=== PATIENT | female | born 1955 | race Caucasian/White ===

== ENCOUNTER 2017-10-13 09:07 | Outpatient (CLI) | payer OTHER | END 2017-10-13 09:08 | disposition home or self-care (01) | LOC: BICMAMMO 09:07 | PROVIDERS: ATTEND Family Medicine | DX: Z12.31 Encounter for screening mammogram for malignant neoplasm of breast (principal) | CPT/HCPCS: 77063; 77067 ==

== ENCOUNTER 2020-06-11 10:08 | Inpatient (IN) | payer OTHER ==
[2020-06-11] MEDS ORDERED: Iopamidol-370 76% 500 ML 1 ML ONE (10:35)
[2020-06-11] MEDS ORDERED: Dexamethasone 4 MG TAB ONE (11:09)
[2020-06-11] MEDS ORDERED: cefTRIAXone\\ROCEPHIN 1 GM VIAL ONE (11:09)
[2020-06-11] MEDS ORDERED: Azithromycin 500 MG VIAL ONE (11:09)
[2020-06-11 11:29] LABS: #Basophils 0.1 thou/uL (0.0-0.2); #Lymphocytes 0.5 thou/uL (1.20-3.40); #Monocytes 0.2 thou/uL (0.11-0.59); #Neutrophils 5.7 thou/uL (1.40-6.50); %Basophils 0.8 % (0.0-1.0); %Eosinophils 0.1 % (0.0-10.0); %Neutrophils 88.1 % (42.0-75.0); Mean Corpuscular HGB CONC 33.3 g/dL (32.0-36.0); Mean Corpuscular Hemoglobin 29.7 pg (27.0-31.0); Mean Corpuscular Volume 88.9 fL (78.0-98.0); Mean Platelet Volume 7.1 fL (7.4-10.4); Platelet Count 274 thou/uL (130-400); Red Blood Cell (RBC) Count 4.39 mill/uL (4.20-5.40); White Blood Cell (WBC) Count 6.5 thou/uL (4.8-10.8)
[2020-06-11 11:41] LABS: ALT (SGPT) 75 U/L (8-55); AST (SGOT) 76 U/L (5-34); Albumin 3.8 g/dL (3.4-4.8); Alkaline Phosphatase 132 U/L (40-110); Anion Gap 15 mmol/L (10-20); BUN (Urea Nitrogen) 14 mg/dL (9.8-20.1); Bilirubin, Total 0.6 mg/dL (0.2-1.2); Calc. Creatinine Clearance 0 mL/min (70-130); Calcium 8.4 mg/dL (7.8-10.44); Carbon Dioxide 26 mmol/L (23-31); Chloride 101 mmol/L (98-107); Globulin 3.3 g/dL (2.4-3.5); Glucose 131 mg/dL (80-115); Lipase 29 U/L (8-78); Magnesium 1.8 mg/dL (1.6-2.6); Potassium 3.2 mmol/L (3.5-5.1); Protein, Total 7.1 g/dL (6.0-8.3); Sodium 139 mmol/L (136-145)
[2020-06-11 11:48] LABS: Bacteria/HPF None Seen HPF (None Seen); Bilirubin Negative (Negative); Blood, Urine Negative (Negative); Clarity Clear (Clear); Glucose, Urine (Dipstick) Normal (Negative); Ketone, Urine Negative (Negative); Leukocyte Negative Leu/uL (Negative); Nitrite Negative (Negative); Protein, Urine (Dipstick) 50 mg/dL (Neg-Trace); RBC/HPF 0-3 HPF (0-3); Specific Gravity, Urine 1.029 (1.002-1.036); Squamous Epithelial 0-3 HPF (0-3); Urobilinogen Normal mg/dL (Less than 2); WBC/HPF 0-3 HPF (0-3)
--- NOTE | 2020-06-11 12:15 | RAD ---
PORTABLE CHEST: HISTORY: Cough. COMPARISON: None. FINDINGS: Heart size is within normal limits. Bilateral infiltrative lung changes are seen suspicious for COVI D pneumonia. IMPRESSION: Fairly extensive bilateral infiltrates. Correlation as to the possibility of COVID pneumonia. POS: YOVANNY
[2020-06-11 13:01] LABS: SARS-CoV-2 NAA Rapid Test DETECTED (NotDetected)
[2020-06-11] MEDS ORDERED: Azithromycin 250 MG TAB ONE (13:22)
--- NOTE | 2020-06-11 13:25 | CT ---
CT PULMONARY ANGIOGRAM WITH IV CONTRAST AND 3D POSTPROCESSING: Date: 06/11/2020 HISTORY: 64-year-old female with elevated D-Dimer and positive for COVID-19. FINDINGS: There is good contrast opacification without evidence of filling defects in the pulmonary arterial va sculature to suggest pulmonary embolism. The thoracic aorta is well opacified without aneurysm or dis section. No pleural or pericardial effusions are seen. Multifocal patchy areas of ground-glass opacity and consolidation are seen bilaterally. Upper abdominal tomograms demonstrate a cyst in the superior pole of the right kidney. IMPRESSION: 1. No CT evidence of pulmonary embolism. 2. Findings are consistent with COVID-19 pneumonia. POS: MZA
--- NOTE | 2020-06-11 14:03 | PDOC.HHP ---
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 Patient did not have any loss of taste or smell sensation, she was having on and off fever and increasing shortness of breath. Patient was given ivermectin on Wednesday and Wednesday last week, subsequently patient finished hydroxychloroquine as well as budesonide nebulization and prednisone. Patient restarted taking ivermectin again this week Wednesday, patient symptoms continue to get worse and there so she decided to come to emergency room for evaluation. Today in the emergency room her chest x-ray showing worsening of infiltration as well as bilateral groundglass opacity consistent with Covid pneumonia. Patient was hypoxic on room air required oxygen. Patient is admitted for Covid pneumonia and respiratory failure ED Course: Patient is given azithromycin 500 mg p.o., Rocephin 1 g IV, 500 mL IV fluid, dexamethasone 10 mg p.o. Hospitalist ROS - Review of Systems Constitutional: reports: fever, weakness ENT: denies: ear pain, ear discharge, nose pain, nose discharge, nose congestion, mouth pain, mouth swelling, throat pain, throat swelling, other Respiratory: reports: cough, shortness of breath, SOB with excertion. denies: dry, hemoptysis, pleuritic pain, sputum, wheezing, other Cardiovascular: denies: chest pain, palpitations, orthopnea, paroxysmal noc. dyspnea, edema, light headedness, other Gastrointestinal: denies: nausea, vomiting, abdominal pain, diarrhea, constipation, melena, hematochezia, other Genitourinary: denies: dysuria, frequency, incontinence, hematuria, retention, other Musculoskeletal: denies: neck pain, shoulder pain, arm pain, back pain, hand pain, leg pain, foot pain, other Skin: denies: rash, lesions, cleve, bruising, other - Medication Medications: Allergies Bactrim CODE STATUS patient is full code Current home medication Metoprolol tartrate Levothyroxine Hospitalist History - Past Medical History Other Medical History: Hypothyroidism Hypertension Past psychiatric history reviewed and negative - Past Surgical History Other Surgical History: Hysterectomy - Family History Other Family History: No strong family history of premature coronary artery disease stroke or cancer - Social History Other Social History: Patient is nurse practitioner, she drinks alcohol occasionally, no smoking, no drug abuse - Exam General Appearance: NAD, awake alert Eye: PERRL, anicteric sclera ENT: normocephalic atraumatic, no oropharyngeal lesions Neck: supple, symmetric, no JVD, no thyromegaly, no lymphadenopathy, no carotid bruit Heart: RRR, no murmur, no gallops, no rubs Respiratory: no wheezes, no tachypnea, rales Gastrointestinal: soft, non-tender, non-distended, normal bowel sounds Extremities: no cyanosis, no clubbing, no edema Skin: normal turgor, no lesions Neurological: no focal deficits Musculoskeletal: normal tone, normal strength Psychiatric: normal affect, normal behavior Hospitalist Results - Labs Result Diagrams: 06/11/20 10:42 06/11/20 10:42 Lab results: WBC 6.5 thou/uL (4.8-10.8) 06/11/20 10:42 Hgb 13.0 g/dL (12.0-16.0) 06/11/20 10:42 Hct 39.1 % (36.0-47.0) 06/11/20 10:42 MCV 88.9 fL (78.0-98.0) 06/11/20 10:42 Plt Count 274 thou/uL (130-400) 06/11/20 10:42 Neutrophils % 88.1 % (42.0-75.0) H 06/11/20 10:42 Sodium 139 mmol/L (136-145) 06/11/20 10:42 Potassium 3.2 mmol/L (3.5-5.1) L 06/11/20 10:42 Chloride 101 mmol/L (98-107) 06/11/20 10:42 Carbon Dioxide 26 mmol/L (23-31) 06/11/20 10:42 BUN 14 mg/dL (9.8-20.1) 06/11/20 10:42 Creatinine 0.67 mg/dL (0.6-1.1) 06/11/20 10:42 Glucose 131 mg/dL (80-115) H 06/11/20 10:42 Lactic Acid 2.0 mmol/L (0.5-2.2) 06/11/20 11:42 Calcium 8.4 mg/dL (7.8-10.44) 06/11/20 10:42 Total Bilirubin 0.6 mg/dL (0.2-1.2) 06/11/20 10:42 AST 76 U/L (5-34) H 06/11/20 10:42 ALT 75 U/L (8-55) H 06/11/20 10:42 Alkaline Phosphatase 132 U/L (40-110) H 06/11/20 10:42 Troponin I Less than 0.010 ng/mL (< 0.028) 06/11/20 10:42 B-Natriuretic Peptide 10.4 pg/mL (0-100) 06/11/20 10:42 Serum Total Protein 7.1 g/dL (6.0-8.3) 06/11/20 10:42 Albumin 3.8 g/dL (3.4-4.8) 06/11/20 10:42 Lipase 29 U/L (8-78) 06/11/20 10:42 Urine Ketones Negative mg/dL (Negative) 06/11/20 11:21 Urine Blood Negative (Negative) 06/11/20 11:21 Urine Nitrite Negative (Negative) 06/11/20 11:21 Ur Leukocyte Esterase Negative Juan/uL (Negative) 06/11/20 11:21 Urine RBC 0-3 HPF (0-3) 06/11/20 11:21 Urine WBC 0-3 HPF (0-3) 06/11/20 11:21 Ur Squamous Epith Cells 0-3 HPF (0-3) 06/11/20 11:21 Urine Bacteria None Seen HPF (None Seen) 06/11/20 11:21 - EKG Interpretation EKG: EKG showing sinus tachycardia, incomplete right bundle branch block pattern, - Radiology Interpretation Chest x-ray Status: image reviewed by me Additional Comment: Extensive bilateral infiltrate consistent with Covid pneumonia CT scan - chest Status: image reviewed by me Additional Comment: No CT evidence of pulmonary embolism, multifocal groundglass opacity and consolidation bilaterally consistent with Covid pneumonia Hospitalist H&P A/P - Problem (1) Acute respiratory failure due to COVID-19 Code(s): U07.1 - COVID-19; J96.00 - ACUTE RESPIRATORY FAILURE, UNSP W HYPOXIA OR HYPERCAPNIA Status: Acute (2) Pneumonia due to 2019-nCoV Code(s): U07.1 - COVID-19; J12.89 - OTHER VIRAL PNEUMONIA Status: Acute (3) Transaminitis Code(s): R74.01 - ELEVATION OF LEVELS OF LIVER TRANSAMINASE LEVELS Status: Acute (4) Hypokalemia Code(s): E87.6 - HYPOKALEMIA Status: Acute (5) Hypertension Code(s): I10 - ESSENTIAL (PRIMARY) HYPERTENSION Status: Chronic Qualifiers: Hypertension type: essential hypertension Qualified Code(s): I10 - Essential (primary) hypertension (6) Hypothyroidism Code(s): E03.9 - HYPOTHYROIDISM, UNSPECIFIED Status: Chronic Qualifiers: Hypothyroidism type: unspecified Qualified Code(s): E03.9 - Hypothyroidism, unspecified - Plan Plan: Plan Admission to medical floor Droplet, contact and airborne isolation Dexamethasone 6 mg IV daily Vitamin C 1 g p.o. daily, zinc sulfate 220 mg p.o. daily, Symptomatic treatment for cough Albuterol MDI 2 puffs every 6 hourly as needed Continue empiric Rocephin and azithromycin Her home medication will be reconciled Given 11 days of illness, patient less likely to get benefit with remdesivir, We will consult infectious disease for evaluation Replace potassium chloride 40 mg p.o. one-time dose Tomorrow we will repeat inflammatory markers We will closely monitor for any deterioration We will consider convalescent plasma given prolonged duration DVT prophylaxis Lovenox 40 mg subcu daily GI prophylaxis Pepcid 20 mg p.o. twice daily CODE STATUS patient is full code
[2020-06-11 15:00] LABS: Troponin I Less than 0.010 ng/mL (< 0.028)
[2020-06-11] MEDS ORDERED: Ondansetron PF 4 MG/2 ML Vial IVP PRN ×2 (16:00→20:50)
[2020-06-11] MEDS ORDERED: Acetaminophen 325 MG TAB PO PRN ×2 (16:00→20:50)
[2020-06-11] MEDS ORDERED: Ondansetron ODT 4 MG TAB SL PRN (16:00)
[2020-06-11 18:20] LABS: Troponin I Less than 0.010 ng/mL (< 0.028)
[2020-06-11 19:09] VITALS: BMI 26.2
[2020-06-11] MEDS ORDERED: Albuterol Sulfate 2.5 mg/3 ml Neb NEB PRN ×2 (19:42→20:50)
[2020-06-11] MEDS ORDERED: HYDROcodone/Acetaminophen 5/325 mg Tablet PO PRN (20:50)
[2020-06-11] MEDS ORDERED: hydrALAZINE 20 MG/ML VIAL SLOW IVP PRN (20:50)
[2020-06-11] MEDS ORDERED: Sodium Chloride 0.65% Nasal 44 ML BOT EA NARE PRN (20:50)
[2020-06-11] MEDS ORDERED: Calcium Carbonate 500 MG ChewTAB PO PRN (20:50)
[2020-06-11] MEDS ORDERED: Bisacodyl 10 MG SUPP PR PRN (20:50)
[2020-06-11] MEDS ORDERED: Zolpidem Tartrate 5 MG TAB PO PRN (20:50)
[2020-06-11] MEDS ORDERED: Senokot S 8.6-50 MG TAB PO PRN (20:50)
[2020-06-11] MEDS ORDERED: Ondansetron ODT 4 MG TAB PO PRN (20:50)
[2020-06-11] MEDS ORDERED: Potassium Chloride 20 MEQ TAB PO SCH (20:50)
[2020-06-11] MEDS ORDERED: Cepastat Lozenges 1 LOZ PO PRN (20:50)
[2020-06-11] MEDS ORDERED: Loperamide HCl 2 MG CAP PO PRN (20:50)
[2020-06-11] MEDS ORDERED: Loratadine 10 MG TAB PO PRN (20:50)
[2020-06-11] MEDS ORDERED: Diabetic Tussin 200 MG/10 ML UDCUP PO PRN (20:50)
[2020-06-11] MEDS ORDERED: Albuterol 200 PUFF (6.7GM INHALER) INH PRN (21:04)
[2020-06-11] MEDS: Albuterol 200 PUFF (6.7GM INHALER) INH SCH (21:44)
[2020-06-11] MEDS: Ibuprofen 200 MG TAB PO PRN (21:44)
[2020-06-11] MEDS: guaiFENesin ER 600 MG TAB PO SCH (21:45)
[2020-06-11] MEDS: Famotidine 20 MG TAB PO SCH (21:45)
[2020-06-11] MEDS: Benzonatate 100 MG CAP PO PRN (21:45)
[2020-06-12] MEDS: Albuterol 200 PUFF (6.7GM INHALER) INH SCH ×6 (03:53→23:03)
[2020-06-12] MEDS: Levothyroxine Sodium 75 MCG TAB PO SCH (04:51)
[2020-06-12 06:51] LABS: #Basophils 0.1 thou/uL (0.0-0.2); #Lymphocytes 0.5 thou/uL (1.20-3.40); #Monocytes 0.3 thou/uL (0.11-0.59); #Neutrophils 7.6 thou/uL (1.40-6.50); %Basophils 0.8 % (0.0-1.0); %Eosinophils 0.1 % (0.0-10.0); %Monocytes 3.2 % (0.0-10.0); Hemoglobin 12.8 g/dL (12.0-16.0); Mean Corpuscular HGB CONC 32.8 g/dL (32.0-36.0); Mean Corpuscular Hemoglobin 29.9 pg (27.0-31.0); Mean Platelet Volume 6.9 fL (7.4-10.4); Platelet Count 291 thou/uL (130-400); RBC Distribution Width 11.9 % (11.5-14.5); Red Blood Cell (RBC) Count 4.29 mill/uL (4.20-5.40); White Blood Cell (WBC) Count 8.4 thou/uL (4.8-10.8)
[2020-06-12 07:07] LABS: ALT (SGPT) 89 U/L (8-55); AST (SGOT) 72 U/L (5-34); Albumin 3.7 g/dL (3.4-4.8); Alkaline Phosphatase 144 U/L (40-110); Anion Gap 15 mmol/L (10-20); BUN (Urea Nitrogen) 20 mg/dL (9.8-20.1); Bilirubin, Total 0.4 mg/dL (0.2-1.2); CRP (Inflammatory) 8.23 mg/dL (= or < 0.5); Calc. Creatinine Clearance 109 mL/min (70-130); Calcium 8.7 mg/dL (7.8-10.44); Carbon Dioxide 24 mmol/L (23-31); Chloride 105 mmol/L (98-107); Globulin 3.2 g/dL (2.4-3.5); Glucose 107 mg/dL (80-115); Potassium 4.1 mmol/L (3.5-5.1); Protein, Total 6.9 g/dL (6.0-8.3); Sodium 140 mmol/L (136-145)
[2020-06-12] MEDS: Enoxaparin Sodium 40 MG/0.4 ML SYRINGE SC SCH (08:20)
[2020-06-12] MEDS: Ibuprofen 200 MG TAB PO PRN ×2 (08:20→23:31)
[2020-06-12] MEDS: Zinc Sulfate 220 MG CAP PO SCH (08:21)
[2020-06-12] MEDS: Famotidine 20 MG TAB PO SCH ×2 (08:21→21:32)
[2020-06-12] MEDS: Ascorbic Acid 500 mg Chewable Tablet PO SCH (08:21)
[2020-06-12] MEDS: Multivit, Therapeutic 1 TAB PO SCH (08:21)
[2020-06-12] MEDS: guaiFENesin ER 600 MG TAB PO SCH ×2 (08:21→21:31)
[2020-06-12] MEDS: Benzonatate 100 MG CAP PO PRN ×2 (08:21→23:31)
[2020-06-12] MEDS ORDERED: Dexamethasone 4 mg/ml Vial SLOW IVP SCH (09:00)
[2020-06-12] MEDS ORDERED: REMDESIVIR (EUA) 200 MG in Sodium Chloride 0.9% 250 ML 210 ML IV SCH (11:00)
--- NOTE | 2020-06-12 18:49 | CON ---
DATE OF CONSULTATION: 06/12/2020 REASON FOR CONSULT: COVID pneumonia. HISTORY OF PRESENT ILLNESS: A 64-year-old, first admission to this hospital, has a history of hypothyroidism, hypertension, has been sick now for about 12 days with COVID, had an initial negative test and subsequently positive when she was admitted now. She was given hydroxychloroquine in the outpatient setting and then given prednisone and eventually admitted. She has quite pronounced hypoxemia and requiring nasal cannula at 4 L but not yet high-flow nasal cannula requirements. She has a hard time in walking and speaking full sentences and even a hard time in eating because of the breathing interruption caused by the eating motions. No headaches. No chest pain. No abdominal pain, diarrhea. No genitourinary symptoms. No joint symptoms. MEDICAL HISTORY: Hypothyroidism, hypertension. SOCIAL HISTORY: Never a smoker. 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 ALLERGIES: BACTRIM WITH RASH. MEDICATIONS: Had been on 1. Metoprolol. 2. Levothyroxine. Currently she is on 1. Decadron, remdesivir, enoxaparin, among her other p.r.n. medications. 2. She is also on Dulera. FAMILY HISTORY: Noncontributory PHYSICAL EXAMINATION: VITAL SIGNS: Afebrile. She was at 3-1/2 and I increased to 4 L nasal cannula. Her O2 saturations went up to 95%. With proning position, her saturations dropped in the upper 80s and she does not tolerate being in the recumbent position. She requires sitting up, probably because of the distribution of her infiltrates as noted below. NECK: No jugular vein distention. LUNGS: With scattered inspiratory crackles. They are quite prominent in the mid lung region. No wheezing. HEART: S1, S2, regular rate. ABDOMEN: Soft, not distended or tender. No ascites. No bladder distention. Moves all extremities equally. NEUROLOGIC: Cognitive function appears to be intact. LABORATORY DATA: CBC was normal except for mild increase in neutrophil percentage. D-dimer 0.74, 0.9. Sodium 140, creatinine 0.6, AST 72, ALT 89, alkaline phosphatase 144, LDH 377. CRP 8.23. Ferritin was normal at 286. Urinalysis normal. SARS- CoV PCR positive. Chest CT with prominent bilateral ground-glass infiltrates more prevalent in the upper segments of right and left lungs. ASSESSMENT AND PLAN: Severe COVID pneumonia, on nasal cannula O2. The patient is at 12 day of illness. We will get remdesivir and continue Decadron. Followup markers. Job ID: [id number] [facility]
--- NOTE | 2020-06-12 20:23 | PDOC.HOSPP ---
- Subjective Encounter Date: 06/12/20 Encounter Time: 10:00 Subjective: Patient seen and examined for respiratory failure due to COVID-19. Short of breath on minimal exertion. Denies any chest pain or fever. Feels generally weak and fatigue. Continues to have coughing spells. - Objective Vital Signs & Weight: Vital Signs (12 hours) Temp Pulse Resp BP Pulse Ox 06/12/20 15:59 97.5 F L 88 20 110/64 96 06/12/20 12:00 98.0 F 87 20 122/63 92 L Weight Weight 158 lb I&O: 06/11/20 06/12/20 06/13/20 06:59 06:59 06:59 Intake Total 2089 Balance 2089 Result Diagrams: 06/12/20 06:30 06/12/20 06:29 Additional Labs: Abnormal Lab Results - Last 48 hrs 06/11/20 10:42: Potassium 3.2 L, AST 76 H, ALT 75 H, Alkaline Phosphatase 132 H 06/11/20 10:42: MPV 7.1 L, Neutrophils % 88.1 H, Lymphocytes % 8.0 L, Lymphocytes # 0.5 L 06/11/20 10:42: D-Dimer 0.74 H 06/11/20 11:21: Urine Protein 50 A 06/11/20 11:21: SARS-CoV-2 Rap RNA(RT-PCR) DETECTED A* 06/12/20 06:29: AST 72 H, ALT 89 H, Alkaline Phosphatase 144 H, C-Reactive P rotein 8.23 H 06/12/20 06:29: Lactate Dehydrogenase 377 H 06/12/20 06:30: MPV 6.9 L, Neutrophils % 90.0 H, Lymphocytes % 6.0 L, Neutrophils # 7.6 H, Lymphocytes # 0.5 L 06/12/20 06:30: D-Dimer 0.90 H Microbiology - Entire Visit 06/11/20 11:21 Urine clean catch Urine Culture - Preliminary NO GROWTH AT 24 HOURS 06/11/20 11:05 Venous blood - Left Arm Blood Culture - Preliminary Specimen has been received and culture in progress. No Growth to date. 06/11/20 11:02 Venous blood - Right Arm Blood Culture - Preliminary Specimen has been received and culture in progress. No Growth to date. Radiology Reviewed by me: Yes (CT angiogrambilateral pneumonia) Hospitalist ROS - Review of Systems Constitutional: reports: weakness Gastrointestinal: denies: nausea, vomiting, abdominal pain, diarrhea, constipation, melena, hematochezia, other Genitourinary: denies: dysuria, frequency, incontinence, hematuria, retention, other - Medication Medications: Active Medications Generic Name Dose Route Start Last Admin Trade Name Freq PRN Reason Stop Dose Admin Albuterol Sulfate 2 puff 06/11/20 22:30 06/12/20 18:17 Albuterol 200 Puff (6.7gm Inhaler) INH 2 puff [id number] ADA Administration Ascorbic Acid 1,000 mg 06/12/20 09:00 06/12/20 08:21 Ascorbic Acid 500 Mg Chewable Tablet PO 1,000 mg DAILY ADA Administration Benzonatate 100 mg 06/11/20 19:42 06/11/20 21:45 Benzonatate 100 Mg Cap PO 100 mg TIDPRN PRN Administration Cough Benzonatate 100 mg 06/11/20 20:50 06/12/20 08:21 Benzonatate 100 Mg Cap PO 100 mg Q6H PRN Administration Cough Dexamethasone 6 mg 06/12/20 09:00 06/12/20 08:21 Dexamethasone 4 Mg/Ml Vial SLOW IVP 6 mg DAILY ADA Administration Enoxaparin Sodium 40 mg 06/12/20 09:00 06/12/20 08:20 Enoxaparin Sodium 40 Mg/0.4 Ml Syringe SC 40 mg 0900 ADA Administration Famotidine 20 mg 06/11/20 21:00 06/12/20 08:21 Famotidine 20 Mg Tab PO 20 mg BID ADA Administration Guaifenesin 600 mg 06/11/20 21:00 06/12/20 08:21 Guaifenesin Er 600 Mg Tab PO 600 mg Q12HR ADA Administration Ibuprofen 400 mg 06/11/20 19:41 06/12/20 08:20 Ibuprofen 200 Mg Tab PO 400 mg Q8H PRN Administration Pain Levothyroxine Sodium 75 mcg 06/12/20 06:00 06/12/20 04:51 Levothyroxine Sodium 75 Mcg Tab PO 75 mcg 0600 ADA Administration Metoprolol Succinate 25 mg 06/12/20 09:00 06/12/20 08:21 Metoprolol Succinate Xl 25 Mg Tab PO 25 mg DAILY ADA Administration Multivitamins 1 tab 12/09/20 09:00 06/12/20 08:21 Multivit, Therapeutic 1 Tab PO 1 tab DAILY ADA Administration Zinc Sulfate 220 mg 06/12/20 09:00 06/12/20 08:21 Zinc Sulfate 220 Mg Cap PO 220 mg DAILY ADA Administration - Exam General Appearance: ill appearing Eye: PERRL Neck: supple, no JVD Heart: RRR, no gallops, no rubs, normal peripheral pulses Respiratory: no wheezes, rales, rhonchi, tachypneic Gastrointestinal: soft, normal bowel sounds, no guarding, no rigidity Extremities: no cyanosis, no clubbing, no edema Extremities - other findings: No calf tenderness Neurological: no new deficit Psychiatric: normal affect, A&O x 3 Hosp A/P - Plan DVT proph w/lovenox, DVT proph w/SCDs Sepsis with acute hypoxic respiratory failure due to severe COVID-19 pneumoniaPOAsymptom onset 11 days prior to admission Hypertension Hypothyroidism Abnormal LFTs Hypokalemia Elevated inflammatory markers Plan: Case discussed with infectious disease as well as pulmonary. Infectious disease recommended remdesivir along with steroids. Continue O2 supplementation. Continue bronchodilators. Add mucolytic's. Also discussed with pulmonary Dr. Murphy. Chest x-ray and CT scan of the chest reviewed with Dr. Murphy. Dr. Murphy recommended Dulera, doxycycline 100 mg p.o. twice daily, convalescent plasma as well as to increase dexamethasone to [address] Murphy will be avail able for assistance if needed. Monitor inflammatory markers. A.m. labs. Add Ensure. Continue isolation. Continue Lovenox once a day per patient request. Patient was advised to ambulate as tolerated
[2020-06-12] MEDS ORDERED: Doxycycline 100 MG CAP PO SCH (21:00)
[2020-06-12] MEDS: Doxycycline 100 MG CAP PO SCH (21:31)
[2020-06-12] MEDS: Cholecalciferol 1,000 UNITS (25 MCG) TAB PO SCH (21:31)
[2020-06-12] MEDS: Dexamethasone 4 mg/ml Vial SLOW IVP SCH (21:31)
[2020-06-12] MEDS: Mometasone 200 MCG/Formoterol 5 MCG 120 PUFF INHALER INH SCH (21:31)
[2020-06-13] MEDS: Albuterol 200 PUFF (6.7GM INHALER) INH SCH ×6 (02:59→22:40)
[2020-06-13] MEDS: Levothyroxine Sodium 75 MCG TAB PO SCH (05:22)
[2020-06-13 06:57] LABS: #Lymphocytes 0.6 thou/uL (1.20-3.40); #Monocytes 0.2 thou/uL (0.11-0.59); %Basophils 0.5 % (0.0-1.0); %Eosinophils 0.2 % (0.0-10.0); %Lymphocytes 6.8 % (21.0-51.0); %Monocytes 2.2 % (0.0-10.0); %Neutrophils 90.3 % (42.0-75.0); Hemoglobin 13.4 g/dL (12.0-16.0); Mean Corpuscular HGB CONC 33.2 g/dL (32.0-36.0); Mean Corpuscular Volume 90.5 fL (78.0-98.0); Platelet Count 323 thou/uL (130-400); RBC Distribution Width 11.9 % (11.5-14.5); Red Blood Cell (RBC) Count 4.46 mill/uL (4.20-5.40); White Blood Cell (WBC) Count 8.9 thou/uL (4.8-10.8)
[2020-06-13 07:01] LABS: ALT (SGPT) 79 U/L (8-55); AST (SGOT) 59 U/L (5-34); Albumin 3.7 g/dL (3.4-4.8); Alkaline Phosphatase 152 U/L (40-110); Anion Gap 14 mmol/L (10-20); BUN (Urea Nitrogen) 19 mg/dL (9.8-20.1); Bilirubin, Total 0.5 mg/dL (0.2-1.2); CRP (Inflammatory) 8.47 mg/dL (= or < 0.5); Calc. Creatinine Clearance 110 mL/min (70-130); Calcium 8.8 mg/dL (7.8-10.44); Carbon Dioxide 27 mmol/L (23-31); Chloride 103 mmol/L (98-107); Globulin 3.5 g/dL (2.4-3.5); Glucose 131 mg/dL (80-115); Potassium 4.1 mmol/L (3.5-5.1); Protein, Total 7.2 g/dL (6.0-8.3); Sodium 140 mmol/L (136-145)
[2020-06-13] MEDS: Mometasone 200 MCG/Formoterol 5 MCG 120 PUFF INHALER INH SCH ×2 (09:28→18:07)
[2020-06-13] MEDS: Ascorbic Acid 500 mg Chewable Tablet PO SCH (09:29)
[2020-06-13] MEDS: Dexamethasone 4 mg/ml Vial SLOW IVP SCH ×2 (09:29→21:25)
[2020-06-13] MEDS: Famotidine 20 MG TAB PO SCH ×2 (09:30→21:23)
[2020-06-13] MEDS: Doxycycline 100 MG CAP PO SCH ×2 (09:30→21:23)
[2020-06-13] MEDS: Multivit, Therapeutic 1 TAB PO SCH (09:30)
[2020-06-13] MEDS: Enoxaparin Sodium 40 MG/0.4 ML SYRINGE SC SCH (09:30)
[2020-06-13] MEDS: Zinc Sulfate 220 MG CAP PO SCH (09:30)
[2020-06-13] MEDS: guaiFENesin ER 600 MG TAB PO SCH ×2 (09:30→21:24)
[2020-06-13] MEDS: Ibuprofen 200 MG TAB PO PRN ×2 (09:31→21:23)
[2020-06-13] MEDS: Benzonatate 100 MG CAP PO PRN ×2 (09:31→21:24)
[2020-06-13] MEDS: REMDESIVIR (EUA) 100 MG in Sodium Chloride 0.9% 250 ML 230 ML IV SCH (13:11)
--- NOTE | 2020-06-13 19:27 | PRG ---
DATE OF SERVICE: 06/13/2020 SUBJECTIVE: Ms. Galicia is feeling better. She is able to go to the restroom and not get terribly short of breath. She can talk and eat now better. OBJECTIVE: VITAL SIGNS: Temperature is normal, saturating 96 on 4 L. GENERAL: Looks more comfortable. She is not so apprehensive as she had been. LUNGS: Symmetric air entry. There are still few crackles here and there. HEART: S1 and S2. Regular rate. ABDOMEN: Soft, not distended. EXTREMITIES: Moves all extremities equally. LABORATORY DATA: White cell count 8.9, hemoglobin 13.4. Creatinine 0.59, AST 59, ALT 79, alkaline phosphatase 152, and CRP is 8.47. She is currently on remdesivir and Decadron. ASSESSMENT AND DISCUSSION: Severe COVID pneumonia, on nasal cannula O2, feeling better. Today is the 13th day of illness, so hopefully she is going to get out of this phase and start improving through the weekend. Job ID: [id number]
--- NOTE | 2020-06-13 19:48 | PDOC.HOSPP ---
- Subjective Encounter Date: 06/13/20 Encounter Time: 11:00 Subjective: Patient seen and examined for respiratory failure/COVID-19 pneumonia. Shortness of breath slowly improving. Feels generally weak. Cough with minimal production. - Objective Vital Signs & Weight: Vital Signs (12 hours) Temp Pulse Resp BP Pulse Ox 06/13/20 09:00 98.0 F 86 20 158/71 H 96 06/13/20 08:00 96 Weight Weight 158 lb I&O: 06/12/20 06/13/20 06/14/20 06:59 06:59 06:59 Intake Total 2089 Balance 2089 Result Diagrams: 06/13/20 06:17 06/13/20 06:17 Additional Labs: Abnormal Lab Results - Last 48 hrs 06/12/20 06:29: AST 72 H, ALT 89 H, Alkaline Phosphatase 144 H, C-Reactive Protein 8.23 H 06/12/20 06:29: Lactate Dehydrogenase 377 H 06/12/20 06:30: MPV 6.9 L, Neutrophils % 90.0 H, Lymphocytes % 6.0 L, Reinaldo trophils # 7.6 H, Lymphocytes # 0.5 L 06/12/20 06:30: D-Dimer 0.90 H 06/13/20 06:17: Creatinine 0.59 L, AST 59 H, ALT 79 H, Alkaline Phosphatase 152 H, C-Reactive Protein 8.47 H, Albumin/Globulin Ratio 1.1 L 06/13/20 06:17: MPV 7.0 L, Neutrophils % 90.3 H, Lymphocytes % 6.8 L, Neutrophils # 8.0 H, Lymphocytes # 0.6 L 06/13/20 06:17: D-Dimer 0.90 H Microbiology - Entire Visit 06/11/20 11:05 Venous blood - Left Arm Blood Culture - Preliminary NO GROWTH AT 48 HOURS 06/11/20 11:02 Venous blood - Right Arm Blood Culture - Preliminary NO GROWTH AT 48 HOURS 06/11/20 11:21 Urine clean catch Urine Culture - Final NO GROWTH AT 48 HOURS Radiology Reviewed by me: Yes (Chest x-raybilateral pneumonia) Hospitalist ROS - Review of Systems Constitutional: reports: weakness. denies: fever, chills, sweats, malaise, other Gastrointestinal: denies: nausea, vomiting, abdominal pain, diarrhea, constipation, melena, hematochezia, other - Medication Medications: Active Medications Generic Name Dose Route Start Last Admin Trade Name Freq PRN Reason Stop Dose Admin Albuterol Sulfate 2 puff 06/11/20 22:30 06/13/20 18:07 Albuterol 200 Puff (6.7gm Inhaler) INH 2 puff [id number] ADA Administration Ascorbic Acid 1,000 mg 06/12/20 09:00 06/13/20 09:29 Ascorbic Acid 500 Mg Chewable Tablet PO 1,000 mg DAILY ADA Administration Benzonatate 100 mg 06/11/20 19:42 06/11/20 21:45 Benzonatate 100 Mg Cap PO 100 mg TIDPRN PRN Administration Cough Benzonatate 100 mg 06/11/20 20:50 06/13/20 09:31 Benzonatate 100 Mg Cap PO 100 mg Q6H PRN Administration Cough Cholecalciferol 1,000 units 06/12/20 21:00 06/12/20 21:31 Cholecalciferol 1,000 Units (25 Mcg) Tab PO 1,000 units HS ADA Administration Dexamethasone 6 mg 06/12/20 21:00 06/13/20 09:29 Dexamethasone 4 Mg/Ml Vial SLOW IVP 6 mg BID ADA Administration Doxycycline Hyclate 100 mg 06/12/20 21:00 06/13/20 09:30 Doxycycline 100 Mg Cap PO 100 mg BID ADA Administration Enoxaparin Sodium 40 mg 06/12/20 09:00 06/13/20 09:30 Enoxaparin Sodium 40 Mg/0.4 Ml Syringe SC 40 mg 0900 ADA Administration Famotidine 20 mg 06/11/20 21:00 06/13/20 09:30 Famotidine 20 Mg Tab PO 20 mg BID ADA Administration Guaifenesin 600 mg 06/11/20 21:00 06/13/20 09:30 Guaifenesin Er 600 Mg Tab PO 600 mg Q12HR ADA Administration Remdesivir 100 mg/ Sodium 250 mls @ 250 mls/hr 06/13/20 11:00 06/13/20 13:11 Chloride IV 06/16/20 11:59 250 mls 1100 ADA Administration Ibuprofen 400 mg 06/11/20 19:41 06/13/20 09:31 Ibuprofen 200 Mg Tab PO 400 mg Q8H PRN Administration Pain Levothyroxine Sodium 75 mcg 06/12/20 06:00 06/13/20 05:22 Levothyroxine Sodium 75 Mcg Tab PO 75 mcg 0600 ADA Administration Metoprolol Succinate 25 mg 06/12/20 09:00 06/13/20 09:30 Metoprolol Succinate Xl 25 Mg Tab PO 25 mg DAILY ADA Administration Mometasone Furoate/Formoterol Fumar 2 puff 06/12/20 18:30 06/13/20 18:07 Mometasone 200 Mcg/Formoterol 5 Mcg 120 Puff Inhaler INH 2 puff BID-RT ADA Administration Multivitamins 1 tab 06/12/20 09:00 06/13/20 09:30 Multivit, Therapeutic 1 Tab PO 1 tab DAILY ADA Administration Zinc Sulfate 220 mg 06/12/20 09:00 06/13/20 09:30 Zinc Sulfate 220 Mg Cap PO 220 mg DAILY ADA Administration - Exam General Appearance: ill appearing Neck: supple, no JVD Heart: no gallops, no rubs Respiratory: no wheezes, rales, rhonchi Gastrointestinal: soft, non-distended, no guarding, no rigidity Extremities: no cyanosis, no clubbing Neurological: no new deficit Musculoskeletal: generalized weakness Hosp A/P - Plan DVT proph w/lovenox, DVT proph w/SCDs Sepsis with acute hypoxic respiratory failure due to severe COVID-19 pneumoniaPOAsymptom onset 11 days prior to admission Hypertension Hypothyroidism Abnormal LFTs Hypokalemia Elevated inflammatory markers Plan: Case discussed again with pulmonary Dr. Murphy. Dr. Murphy advised to continue dexamethasone 6 mg twice daily, doxycycline, albuterol and Dulera. We will continue remdesivir per protocol. Wean O2 as tolerated. Monitor inflammatory markers. Continue other medications as above. Check labs in a.m. (Day 13)
[2020-06-13] MEDS ORDERED: Electrolyte Replacement Protocol 1 EACH FS SCH (20:00)
[2020-06-13] MEDS ORDERED: Electrolyte Replacement Protocol FS PRN (20:00)
[2020-06-13] MEDS: Cholecalciferol 1,000 UNITS (25 MCG) TAB PO SCH (21:25)
[2020-06-14] MEDS: Albuterol 200 PUFF (6.7GM INHALER) INH SCH ×6 (02:49→23:09)
[2020-06-14] MEDS: Levothyroxine Sodium 75 MCG TAB PO SCH (05:32)
[2020-06-14] MEDS: Mometasone 200 MCG/Formoterol 5 MCG 120 PUFF INHALER INH SCH ×2 (06:06→18:32)
[2020-06-14 06:26] LABS: #Eosinphils 0.1 thou/uL (0.0-0.7); #Lymphocytes 0.7 thou/uL (1.20-3.40); #Monocytes 0.4 thou/uL (0.11-0.59); #Neutrophils 5.3 thou/uL (1.40-6.50); %Basophils 0.2 % (0.0-1.0); %Eosinophils 0.9 % (0.0-10.0); %Lymphocytes 10.9 % (21.0-51.0); %Monocytes 6.6 % (0.0-10.0); %Neutrophils 81.4 % (42.0-75.0); Hemoglobin 13.2 g/dL (12.0-16.0); Mean Corpuscular HGB CONC 33.2 g/dL (32.0-36.0); Mean Corpuscular Hemoglobin 29.9 pg (27.0-31.0); Mean Platelet Volume 7.1 fL (7.4-10.4); Platelet Count 388 thou/uL (130-400); RBC Distribution Width 11.9 % (11.5-14.5); Red Blood Cell (RBC) Count 4.42 mill/uL (4.20-5.40); White Blood Cell (WBC) Count 6.6 thou/uL (4.8-10.8)
[2020-06-14] MEDS ORDERED: Magnesium 2 GM/50 ML 2 GM in Premix Bag 1 BAG IVPB SCH (06:30)
[2020-06-14 06:49] LABS: ALT (SGPT) 64 U/L (8-55); AST (SGOT) 42 U/L (5-34); Albumin 3.4 g/dL (3.4-4.8); Alkaline Phosphatase 138 U/L (40-110); Anion Gap 15 mmol/L (10-20); BUN (Urea Nitrogen) 21 mg/dL (9.8-20.1); Bilirubin, Total 0.4 mg/dL (0.2-1.2); Calc. Creatinine Clearance 112 mL/min (70-130); Calcium 8.5 mg/dL (7.8-10.44); Carbon Dioxide 24 mmol/L (23-31); Chloride 104 mmol/L (98-107); Globulin 3.4 g/dL (2.4-3.5); Glucose 146 mg/dL (80-115); Magnesium 2.1 mg/dL (1.6-2.6); Protein, Total 6.8 g/dL (6.0-8.3); Sodium 139 mmol/L (136-145)
[2020-06-14] MEDS: Benzonatate 100 MG CAP PO PRN ×2 (07:38→20:50)
[2020-06-14] MEDS: Famotidine 20 MG TAB PO SCH ×2 (07:38→20:50)
[2020-06-14] MEDS: Ascorbic Acid 500 mg Chewable Tablet PO SCH (07:38)
[2020-06-14] MEDS: Zinc Sulfate 220 MG CAP PO SCH (07:38)
[2020-06-14] MEDS: Doxycycline 100 MG CAP PO SCH ×2 (07:38→20:50)
[2020-06-14] MEDS: Ibuprofen 200 MG TAB PO PRN ×3 (07:38→23:10)
[2020-06-14] MEDS: Enoxaparin Sodium 40 MG/0.4 ML SYRINGE SC SCH (07:39)
[2020-06-14] MEDS: Dexamethasone 4 mg/ml Vial SLOW IVP SCH ×2 (07:39→20:47)
[2020-06-14] MEDS: Multivit, Therapeutic 1 TAB PO SCH (07:39)
[2020-06-14] MEDS: guaiFENesin ER 600 MG TAB PO SCH ×2 (07:39→20:50)
[2020-06-14] MEDS: REMDESIVIR (EUA) 100 MG in Sodium Chloride 0.9% 250 ML 230 ML IV SCH (12:15)
[2020-06-14] MEDS: Guaifenesin DM 100-10/5 ML UDCUP PO PRN ×2 (15:26→23:10)
[2020-06-14] MEDS: Cholecalciferol 1,000 UNITS (25 MCG) TAB PO SCH (20:50)
--- NOTE | 2020-06-14 20:51 | PDOC.HOSPP ---
- Subjective Encounter Date: 06/14/20 Encounter Time: 15:00 Subjective: Patient seen and examined for respiratory failure due to COVID-19. Denies any worsening of shortness of breath. Some dry cough. No fever or chills. - Objective Vital Signs & Weight: Vital Signs (12 hours) Temp Pulse Resp BP Pulse Ox 06/14/20 18:15 96 06/14/20 16:40 97.7 F 86 20 130/74 96 06/14/20 11:45 97.7 F 93 20 129/77 96 Weight Weight 158 lb I&O: 06/13/20 06/14/20 06/15/20 06:59 06:59 06:59 Intake Total 2089 500 1570 Balance 2089 500 1570 Result Diagrams: 06/14/20 06:06 06/14/20 06:06 Additional Labs: Abnormal Lab Results - Last 48 hrs 06/13/20 06:17: Creatinine 0.59 L, AST 59 H, ALT 79 H, Alkaline Phosphatase 152 H, C-Reactive Protein 8.47 H, Albumin/Globulin Ratio 1.1 L 06/13/20 06:17: MPV 7.0 L, Neutrophils % 90.3 H, Lymphocytes % 6.8 L, Neutrophils # 8.0 H, Lymphocytes # 0.6 L 06/13/20 06:17: D-Dimer 0.90 H 06/14/20 06:06: BUN 21 H, Creatinine 0.58 L, AST 42 H, ALT 64 H, Alkaline Phosphatase 138 H, Albumin/Globulin Ratio 1.0 L 06/14/20 06:06: MPV 7.1 L, Neutrophils % 81.4 H, Lymphocytes % 10.9 L, Lymphocytes # 0.7 L Microbiology - Entire Visit 06/11/20 11:05 Venous blood - Left Arm Blood Culture - Preliminary NO GROWTH AT 48 HOURS 06/11/20 11:02 Venous blood - Right Arm Blood Culture - Preliminary NO GROWTH AT 48 HOURS 06/11/20 11:21 Urine clean catch Urine Culture - Final NO GROWTH AT 48 HOURS Radiology Reviewed by me: Yes (Chest x-rayCovid pneumonia) Hospitalist ROS - Review of Systems Cardiovascular: denies: chest pain, palpitations, orthopnea, paroxysmal noc. dyspnea, edema, light headedness, other Gastrointestinal: denies: nausea, vomiting, abdominal pain, diarrhea, constipation, melena, hematochezia, other - Medication Medications: Active Medications Generic Name Dose Route Start Last Admin Trade Name Freq PRN Reason Stop Dose Admin Albuterol Sulfate 2 puff 06/11/20 22:30 06/14/20 18:32 Albuterol 200 Puff (6.7gm Inhaler) INH 2 puff [id number] ADA Administration Ascorbic Acid 1,000 mg 06/12/20 09:00 06/14/20 07:38 Ascorbic Acid 500 Mg Chewable Tablet PO 1,000 mg DAILY ADA Administration Benzonatate 100 mg 06/11/20 19:42 06/11/20 21:45 Benzonatate 100 Mg Cap PO 100 mg TIDPRN PRN Administration Cough Benzonatate 100 mg 06/11/20 20:50 06/14/20 07:38 Benzonatate 100 Mg Cap PO 100 mg Q6H PRN Administration Cough Cholecalciferol 1,000 units 06/12/20 21:00 06/13/20 21:25 Cholecalciferol 1,000 Units (25 Mcg) Tab PO 1,000 units HS ADA Administration Dexamethasone 6 mg 06/12/20 21:00 06/14/20 07:39 Dexamethasone 4 Mg/Ml Vial SLOW IVP 6 mg BID ADA Administration Doxycycline Hyclate 100 mg 06/12/20 21:00 06/14/20 07:38 Doxycycline 100 Mg Cap PO 100 mg BID ADA Administration Enoxaparin Sodium 40 mg 06/12/20 09:00 06/14/20 07:39 Enoxaparin Sodium 40 Mg/0.4 Ml Syringe SC 40 mg 09 ADA Administration Famotidine 20 mg 06/11/20 21:00 06/14/20 07:38 Famotidine 20 Mg Tab PO 20 mg BID ADA Administration Guaifenesin 600 mg 06/11/20 21:00 06/14/20 07:39 Guaifenesin Er 600 Mg Tab PO 600 mg Q12HR ADA Administration Guaifenesin/Dextromethorphan 15 ml 06/11/20 19:42 06/14/20 15:26 Guaifenesin Dm 100-10/5 Ml Udcup PO 15 ml Q4H PRN Administration Cough Remdesivir 100 mg/ Sodium 250 mls @ 250 mls/hr 06/13/20 11:00 06/14/20 12:15 Chloride IV 06/16/20 11:59 250 mls 1100 ADA Administration Ibuprofen 400 mg 06/11/20 19:41 06/14/20 15:26 Ibuprofen 200 Mg Tab PO 400 mg Q8H PRN Administration Pain Levothyroxine Sodium 75 mcg 06/12/20 06:00 06/14/20 05:32 Levothyroxine Sodium 75 Mcg Tab PO 75 mcg 0600 ADA Administration Metoprolol Succinate 25 mg 06/12/20 09:00 06/14/20 07:39 Metoprolol Succinate Xl 25 Mg Tab PO 25 mg DAILY ADA Administration Mometasone Furoate/Formoterol Fumar 2 puff 06/12/20 18:30 06/14/20 18:32 Mometasone 200 Mcg/Formoterol 5 Mcg 120 Puff Inhaler INH 2 puff BID-RT ADA Administration Multivitamins 1 tab 06/12/20 09:00 06/14/20 07:39 Multivit, Therapeutic 1 Tab PO 1 tab DAILY ADA Administration Zinc Sulfate 220 mg 06/12/20 09:00 06/14/20 07:38 Zinc Sulfate 220 Mg Cap PO 220 mg DAILY ADA Administration - Exam General Appearance: ill appearing Heart: RRR, no gallops Respiratory: no wheezes, rales, rhonchi Gastrointestinal: soft, normal bowel sounds Extremities: no cyanosis, no clubbing Neurological: no new deficit Hosp A/P - Plan DVT proph w/lovenox, DVT proph w/SCDs Sepsis with acute hypoxic respiratory failure due to severe COVID-19 pneumoniasymptom onset 11 days prior to admission On remdesivir/dexamethasone Hypertension Hypothyroidism Abnormal LFTs Hypokalemia Elevated inflammatory markers Plan: Case discussed with pulmonary Dr. Murphy who recommended to continue current medications. Continue remdesivir and dexamethasone. Continue bronchodilators and inhaled steroids. Continue doxycycline. Recheck labs in a.m. Monitor inflammatory markers.
[2020-06-15] MEDS: Albuterol 200 PUFF (6.7GM INHALER) INH SCH ×6 (01:49→21:31)
[2020-06-15] MEDS: Mometasone 200 MCG/Formoterol 5 MCG 120 PUFF INHALER INH SCH ×2 (05:32→18:32)
[2020-06-15] MEDS: Levothyroxine Sodium 75 MCG TAB PO SCH (05:32)
[2020-06-15 05:47] LABS: #Eosinphils 0.1 thou/uL (0.0-0.7); #Lymphocytes 0.7 thou/uL (1.20-3.40); #Monocytes 0.5 thou/uL (0.11-0.59); #Neutrophils 5.9 thou/uL (1.40-6.50); %Basophils 0.2 % (0.0-1.0); %Eosinophils 0.8 % (0.0-10.0); %Lymphocytes 9.2 % (21.0-51.0); %Monocytes 7.2 % (0.0-10.0); %Neutrophils 82.7 % (42.0-75.0); Hemoglobin 12.7 g/dL (12.0-16.0); Mean Corpuscular HGB CONC 32.8 g/dL (32.0-36.0); Mean Corpuscular Hemoglobin 29.5 pg (27.0-31.0); Mean Corpuscular Volume 89.9 fL (78.0-98.0); Mean Platelet Volume 6.6 fL (7.4-10.4); Platelet Count 435 thou/uL (130-400); RBC Distribution Width 11.7 % (11.5-14.5); Red Blood Cell (RBC) Count 4.31 mill/uL (4.20-5.40); White Blood Cell (WBC) Count 7.2 thou/uL (4.8-10.8)
[2020-06-15 06:15] LABS: ALT (SGPT) 50 U/L (8-55); AST (SGOT) 25 U/L (5-34); Albumin 3.3 g/dL (3.4-4.8); Alkaline Phosphatase 124 U/L (40-110); Anion Gap 15 mmol/L (10-20); BUN (Urea Nitrogen) 22 mg/dL (9.8-20.1); Bilirubin, Total 0.4 mg/dL (0.2-1.2); CRP (Inflammatory) 1.74 mg/dL (= or < 0.5); Calc. Creatinine Clearance 112 mL/min (70-130); Calcium 8.3 mg/dL (7.8-10.44); Carbon Dioxide 23 mmol/L (23-31); Chloride 104 mmol/L (98-107); Globulin 3.2 g/dL (2.4-3.5); Glucose 165 mg/dL (80-115); Potassium 4.1 mmol/L (3.5-5.1); Protein, Total 6.5 g/dL (6.0-8.3); Sodium 138 mmol/L (136-145)
[2020-06-15] MEDS: Dexamethasone 4 mg/ml Vial SLOW IVP SCH ×2 (07:57→21:31)
[2020-06-15] MEDS: Enoxaparin Sodium 40 MG/0.4 ML SYRINGE SC SCH (07:57)
[2020-06-15] MEDS: Famotidine 20 MG TAB PO SCH ×2 (07:58→21:30)
[2020-06-15] MEDS: Benzonatate 100 MG CAP PO PRN ×2 (07:58→21:30)
[2020-06-15] MEDS: Multivit, Therapeutic 1 TAB PO SCH (07:58)
[2020-06-15] MEDS: Zinc Sulfate 220 MG CAP PO SCH (07:58)
[2020-06-15] MEDS: Ascorbic Acid 500 mg Chewable Tablet PO SCH (07:58)
[2020-06-15] MEDS: guaiFENesin ER 600 MG TAB PO SCH ×2 (07:59→21:30)
[2020-06-15] MEDS: Ibuprofen 200 MG TAB PO PRN ×2 (08:00→21:30)
[2020-06-15] MEDS: Doxycycline 100 MG CAP PO SCH ×2 (08:05→21:30)
[2020-06-15] MEDS: REMDESIVIR (EUA) 100 MG in Sodium Chloride 0.9% 250 ML 230 ML IV SCH (11:16)
[2020-06-15] MEDS: Cholecalciferol 1,000 UNITS (25 MCG) TAB PO SCH (21:30)
[2020-06-16] MEDS: Albuterol 200 PUFF (6.7GM INHALER) INH SCH ×6 (03:29→21:50)
[2020-06-16] MEDS: Levothyroxine Sodium 75 MCG TAB PO SCH (05:05)
[2020-06-16 05:47] LABS: #Eosinphils 0.1 thou/uL (0.0-0.7); #Lymphocytes 0.9 thou/uL (1.20-3.40); #Monocytes 0.6 thou/uL (0.11-0.59); #Neutrophils 7.8 thou/uL (1.40-6.50); %Eosinophils 0.5 % (0.0-10.0); %Lymphocytes 9.1 % (21.0-51.0); %Monocytes 6.7 % (0.0-10.0); %Neutrophils 83.6 % (42.0-75.0); Mean Corpuscular HGB CONC 33.1 g/dL (32.0-36.0); Mean Corpuscular Hemoglobin 29.5 pg (27.0-31.0); Mean Corpuscular Volume 89.3 fL (78.0-98.0); Mean Platelet Volume 6.5 fL (7.4-10.4); Platelet Count 453 thou/uL (130-400); RBC Distribution Width 11.8 % (11.5-14.5); Red Blood Cell (RBC) Count 4.41 mill/uL (4.20-5.40); White Blood Cell (WBC) Count 9.3 thou/uL (4.8-10.8)
[2020-06-16 06:10] LABS: ALT (SGPT) 42 U/L (8-55); AST (SGOT) 22 U/L (5-34); Albumin 3.3 g/dL (3.4-4.8); Alkaline Phosphatase 114 U/L (40-110); Anion Gap 16 mmol/L (10-20); BUN (Urea Nitrogen) 21 mg/dL (9.8-20.1); Bilirubin, Total 0.5 mg/dL (0.2-1.2); Calc. Creatinine Clearance 105 mL/min (70-130); Calcium 8.4 mg/dL (7.8-10.44); Carbon Dioxide 23 mmol/L (23-31); Chloride 102 mmol/L (98-107); Globulin 3.1 g/dL (2.4-3.5); Glucose 163 mg/dL (80-115); Protein, Total 6.4 g/dL (6.0-8.3); Sodium 137 mmol/L (136-145)
[2020-06-16] MEDS: Mometasone 200 MCG/Formoterol 5 MCG 120 PUFF INHALER INH SCH ×2 (06:42→18:23)
--- NOTE | 2020-06-16 08:33 | PDOC.HOSPP ---
- Subjective Encounter Date: 06/15/20 Encounter Time: 11:16 Subjective: Patient up in bed no complaints. - Objective Vital Signs & Weight: Vital Signs (12 hours) Temp Pulse Resp BP Pulse Ox 06/16/20 08:07 97.7 F 91 18 118/74 95 06/16/20 05:22 97.3 F L 87 18 133/82 96 06/16/20 03:43 79 18 99 06/15/20 23:32 97.0 F L 76 20 162/91 H 98 Weight Weight 158 lb I&O: 06/15/20 06/16/20 06/17/20 06:59 06:59 06:59 Intake Total 2069 Balance 2069 Result Diagrams: 06/16/20 05:29 06/16/20 05:29 Hospitalist ROS - Review of Systems Respiratory: denies: cough, dry, shortness of breath, hemoptysis, SOB with excertion, pleuritic pain, sputum, wheezing, other Cardiovascular: denies: chest pain, palpitations, orthopnea, paroxysmal noc. dyspnea, edema, light headedness, other Gastrointestinal: denies: nausea, vomiting, abdominal pain, diarrhea, constipation, melena, hematochezia, other - Medication Medications: Active Medications Generic Name Dose Route Start Last Admin Trade Name Freq PRN Reason Stop Dose Admin Albuterol Sulfate 2 puff 06/11/20 22:30 06/16/20 06:42 Albuterol 200 Puff (6.7gm Inhaler) INH 2 puff [id number] ADA Administration Ascorbic Acid 1,000 mg 06/12/20 09:00 06/15/20 07:58 Ascorbic Acid 500 Mg Chewable Tablet PO 1,000 mg DAILY ADA Administration Benzonatate 100 mg 06/11/20 19:42 06/15/20 21:30 Benzonatate 100 Mg Cap PO 100 mg TIDPRN PRN Administration Cough Benzonatate 100 mg 06/11/20 20:50 06/14/20 20:50 Benzonatate 100 Mg Cap PO 100 mg Q6H PRN Administration Cough Cholecalciferol 1,000 units 06/12/20 21:00 06/15/20 21:30 Cholecalciferol 1,000 Units (25 Mcg) Tab PO 1,000 units HS ADA Administration Dexamethasone 6 mg 06/12/20 21:00 06/15/20 21:31 Dexamethasone 4 Mg/Ml Vial SLOW IVP 6 mg BID ADA Administration Doxycycline Hyclate 100 mg 06/12/20 21:00 06/15/20 21:30 Doxycycline 100 Mg Cap PO 100 mg BID ADA Administration Enoxaparin Sodium 40 mg 06/12/20 09:00 06/15/20 07:57 Enoxaparin Sodium 40 Mg/0.4 Ml Syringe SC 40 mg 0900 ADA Administration Famotidine 20 mg 06/11/20 21:00 06/15/20 21:30 Famotidine 20 Mg Tab PO 20 mg BID ADA Administration Guaifenesin 600 mg 06/11/20 21:00 06/15/20 21:30 Guaifenesin Er 600 Mg Tab PO 600 mg Q12HR ADA Administration Guaifenesin/Dextromethorphan 15 ml 06/11/20 19:42 06/14/20 23:10 Guaifenesin Dm 100-10/5 Ml Udcup PO 15 ml Q4H PRN Administration Cough Remdesivir 100 mg/ Sodium 250 mls @ 250 mls/hr 06/13/20 11:00 06/15/20 11:16 Chloride IV 06/16/20 11:59 250 mls 1100 ADA Administration Ibuprofen 400 mg 06/11/20 19:41 06/15/20 21:30 Ibuprofen 200 Mg Tab PO 400 mg Q8H PRN Administration Pain Levothyroxine Sodium 75 mcg 06/12/20 06:00 06/16/20 05:05 Levothyroxine Sodium 75 Mcg Tab PO 75 mcg 0600 ADA Administration Metoprolol Succinate 25 mg 06/12/20 09:00 06/15/20 07:58 Metoprolol Succinate Xl 25 Mg Tab PO 25 mg DAILY ADA Administration Mometasone Furoate/Formoterol Fumar 2 puff 06/12/20 18:30 06/16/20 06:42 Mometasone 200 Mcg/Formoterol 5 Mcg 120 Puff Inhaler INH 2 puff BID-RT ADA Administration Multivitamins 1 tab 06/12/20 09:00 06/15/20 07:58 Multivit, Therapeutic 1 Tab PO 1 tab DAILY ADA Administration Zinc Sulfate 220 mg 06/12/20 09:00 06/15/20 07:58 Zinc Sulfate 220 Mg Cap PO 220 mg DAILY ADA Administration - Exam Neck: negative: supple, symmetric, no JVD, no thyromegaly, no lymphadenopathy, no carotid bruit, JVD Heart: negative: RRR, no murmur, no gallops, no rubs, normal peripheral pulses, irregular, diminshed peripheral pulses, murmur present, II/IV, III/IV Respiratory: rhonchi Gastrointestinal: negative: soft, non-tender, non-distended, normal bowel sounds, no palpable masses, no hepatomegaly, no splenomegaly, no bruit, no guarding, no rigidity, tender to palpation, distended, diminished bowl sounds, voluntary guarding Hosp A/P - Plan DVT proph w/lovenox, DVT proph w/SCDs Sepsis with acute hypoxic respiratory failure due to severe COVID-19 pneumoniasymptom onset 11 days prior to admission On remdesivir/dexamethasone Hypertension Hypothyroidism Abnormal LFTs Hypokalemia Elevated inflammatory markers Plan: Case discussed with pulmonary Dr. Murphy who recommended to continue current medications. Continue remdesivir and dexamethasone. Continue bronchodilators and inhaled steroids. Continue doxycycline. Recheck labs in a.m. Monitor inflammatory markers. 06/15 we will continue current management. Patient still becomes very hypoxic when she coughs and tries to have a conversation. She is currently on 4 L nasal cannula.
[2020-06-16] MEDS: Enoxaparin Sodium 40 MG/0.4 ML SYRINGE SC SCH (08:46)
[2020-06-16] MEDS: Doxycycline 100 MG CAP PO SCH ×2 (08:46→20:52)
[2020-06-16] MEDS: Dexamethasone 4 mg/ml Vial SLOW IVP SCH ×2 (08:46→20:53)
[2020-06-16] MEDS: Famotidine 20 MG TAB PO SCH ×2 (08:46→20:52)
[2020-06-16] MEDS: guaiFENesin ER 600 MG TAB PO SCH ×2 (08:47→20:52)
[2020-06-16] MEDS: Zinc Sulfate 220 MG CAP PO SCH (08:47)
[2020-06-16] MEDS: Multivit, Therapeutic 1 TAB PO SCH (08:47)
[2020-06-16] MEDS: Ascorbic Acid 500 mg Chewable Tablet PO SCH (08:51)
[2020-06-16] MEDS: Ibuprofen 200 MG TAB PO PRN ×2 (09:26→20:52)
[2020-06-16] MEDS: Benzonatate 100 MG CAP PO PRN ×2 (09:27→20:52)
[2020-06-16] MEDS: REMDESIVIR (EUA) 100 MG in Sodium Chloride 0.9% 250 ML 230 ML IV SCH (12:58)
--- NOTE | 2020-06-16 14:38 | PRG ---
DATE OF SERVICE: 06/16/2020 SUBJECTIVE: Sitting by the bedside, looking good, not in distress. Overall, it turned down her O2 supplementation to 2-1/2. She is saturating at 97%, and after a brief exercise, it stays at 97% O2 saturations. Other vital signs are normal. OBJECTIVE: LUNGS: With crackles mostly confined to the right hemithorax in the upper segments mostly. HEART: S1 and S2, regular rate. ABDOMEN: Soft, not distended or tender. No ascites. No bladder distention. LABORATORY DATA: Creatinine 0.62. Sodium 137, alkaline phosphatase 114. White cell count 9.3, hemoglobin 13, platelets 453, 82% neutrophils. ASSESSMENT AND DISCUSSION: Severe COVID pneumonia with improvement now. This is the 16th day of illness, so we are looking at I think another 2 days and she should be able to go home. She may need O2 supplementation at home just in case. Job ID: [id number]
[2020-06-16] MEDS: Cholecalciferol 1,000 UNITS (25 MCG) TAB PO SCH (20:53)
[2020-06-17] MEDS: Albuterol 200 PUFF (6.7GM INHALER) INH SCH ×6 (02:26→22:15)
[2020-06-17] MEDS: Levothyroxine Sodium 75 MCG TAB PO SCH (05:34)
[2020-06-17] MEDS: Mometasone 200 MCG/Formoterol 5 MCG 120 PUFF INHALER INH SCH ×2 (05:34→17:50)
[2020-06-17 06:11] LABS: #Eosinphils 0.1 thou/uL (0.0-0.7); #Lymphocytes 0.9 thou/uL (1.20-3.40); #Monocytes 0.8 thou/uL (0.11-0.59); #Neutrophils 8.1 thou/uL (1.40-6.50); %Basophils 0.2 % (0.0-1.0); %Eosinophils 0.7 % (0.0-10.0); %Lymphocytes 8.7 % (21.0-51.0); %Monocytes 8.4 % (0.0-10.0); Hemoglobin 12.9 g/dL (12.0-16.0); Mean Corpuscular Hemoglobin 29.3 pg (27.0-31.0); Mean Corpuscular Volume 88.8 fL (78.0-98.0); Mean Platelet Volume 6.8 fL (7.4-10.4); Platelet Count 475 thou/uL (130-400); RBC Distribution Width 11.8 % (11.5-14.5); Red Blood Cell (RBC) Count 4.41 mill/uL (4.20-5.40); White Blood Cell (WBC) Count 9.8 thou/uL (4.8-10.8)
[2020-06-17 06:39] LABS: ALT (SGPT) 33 U/L (8-55); AST (SGOT) 15 U/L (5-34); Albumin 3.2 g/dL (3.4-4.8); Alkaline Phosphatase 109 U/L (40-110); Anion Gap 16 mmol/L (10-20); BUN (Urea Nitrogen) 23 mg/dL (9.8-20.1); Bilirubin, Total 0.4 mg/dL (0.2-1.2); CRP (Inflammatory) 0.59 mg/dL (= or < 0.5); Calc. Creatinine Clearance 109 mL/min (70-130); Calcium 8.2 mg/dL (7.8-10.44); Carbon Dioxide 23 mmol/L (23-31); Chloride 104 mmol/L (98-107); Globulin 2.9 g/dL (2.4-3.5); Glucose 191 mg/dL (80-115); Protein, Total 6.1 g/dL (6.0-8.3); Sodium 139 mmol/L (136-145)
[2020-06-17] MEDS: Multivit, Therapeutic 1 TAB PO SCH (07:50)
[2020-06-17] MEDS: Famotidine 20 MG TAB PO SCH ×2 (07:50→21:10)
[2020-06-17] MEDS: Zinc Sulfate 220 MG CAP PO SCH (07:50)
[2020-06-17] MEDS: guaiFENesin ER 600 MG TAB PO SCH ×2 (07:50→21:10)
[2020-06-17] MEDS: Enoxaparin Sodium 40 MG/0.4 ML SYRINGE SC SCH (07:50)
[2020-06-17] MEDS: Ascorbic Acid 500 mg Chewable Tablet PO SCH (07:50)
[2020-06-17] MEDS: Dexamethasone 4 mg/ml Vial SLOW IVP SCH ×2 (07:51→21:11)
[2020-06-17] MEDS: Ibuprofen 200 MG TAB PO PRN ×2 (07:58→21:10)
[2020-06-17] MEDS: Benzonatate 100 MG CAP PO PRN ×2 (07:59→21:10)
[2020-06-17] MEDS: Doxycycline 100 MG CAP PO SCH ×2 (07:59→21:10)
--- NOTE | 2020-06-17 10:08 | PDOC.HOSPP ---
- Subjective Encounter Date: 06/16/20 Encounter Time: 12:30 Subjective: Patient up in bed no complaints. - Objective Vital Signs & Weight: Vital Signs (12 hours) Temp Pulse Resp BP Pulse Ox 06/17/20 08:17 97.9 F 94 18 131/74 92 L 06/17/20 08:00 97.7 F 87 22 H 117/75 92 L 06/17/20 04:45 97.7 F 84 24 H 97/58 L 96 06/17/20 02:00 98 06/16/20 23:35 97.7 F 86 20 128/78 98 Weight Weight 158 lb I&O: 06/16/20 06/17/20 06/18/20 06:59 06:59 06:59 Intake Total 612 2560 Balance 612 2560 Result Diagrams: 06/17/20 05:42 06/17/20 05:42 Hospitalist ROS - Review of Systems Respiratory: denies: cough, dry, shortness of breath, hemoptysis, SOB with excertion, pleuritic pain, sputum, wheezing, other Cardiovascular: denies: chest pain, palpitations, orthopnea, paroxysmal noc. dyspnea, edema, light headedness, other Gastrointestinal: denies: nausea, vomiting, abdominal pain, diarrhea, constipation, melena, hematochezia, other - Medication Medications: Active Medications Generic Name Dose Route Start Last Admin Trade Name Freq PRN Reason Stop Dose Admin Albuterol Sulfate 2 puff 06/11/20 22:30 06/17/20 05:34 Albuterol 200 Puff (6.7gm Inhaler) INH 2 puff [id number] ADA Administration Ascorbic Acid 1,000 mg 06/12/20 09:00 06/17/20 07:50 Ascorbic Acid 500 Mg Chewable Tablet PO 1,000 mg DAILY ADA Administration Benzonatate 100 mg 06/11/20 19:42 06/16/20 09:27 Benzonatate 100 Mg Cap PO 100 mg TIDPRN PRN Administration Cough Benzonatate 100 mg 06/11/20 20:50 06/17/20 07:59 Benzonatate 100 Mg Cap PO 100 mg Q6H PRN Administration Cough Cholecalciferol 1,000 units 06/12/20 21:00 06/16/20 20:53 Cholecalciferol 1,000 Units (25 Mcg) Tab PO 1,000 units HS ADA Administration Dexamethasone 6 mg 06/12/20 21:00 06/17/20 07:51 Dexamethasone 4 Mg/Ml Vial SLOW IVP 6 mg BID ADA Administration Doxycycline Hyclate 100 mg 06/12/20 21:00 06/17/20 07:59 Doxycycline 100 Mg Cap PO 100 mg BID ADA Administration Enoxaparin Sodium 40 mg 06/12/20 09:00 06/17/20 07:50 Enoxaparin Sodium 40 Mg/0.4 Ml Syringe SC 40 mg 0900 ADA Administration Famotidine 20 mg 06/11/20 21:00 06/17/20 07:50 Famotidine 20 Mg Tab PO 20 mg BID ADA Administration Guaifenesin 600 mg 06/11/20 21:00 06/17/20 07:50 Guaifenesin Er 600 Mg Tab PO 600 mg Q12HR ADA Administration Guaifenesin/Dextromethorphan 15 ml 06/11/20 19:42 06/14/20 23:10 Guaifenesin Dm 100-10/5 Ml Udcup PO 15 ml Q4H PRN Administration Cough Ibuprofen 400 mg 06/11/20 19:41 06/17/20 07:58 Ibuprofen 200 Mg Tab PO 400 mg Q8H PRN Administration Pain Levothyroxine Sodium 75 mcg 06/12/20 06:00 06/17/20 05:34 Levothyroxine Sodium 75 Mcg Tab PO 75 mcg 0600 ADA Administration Metoprolol Succinate 25 mg 06/12/20 09:00 06/17/20 07:50 Metoprolol Succinate Xl 25 Mg Tab PO 25 mg DAILY ADA Administration Mometasone Furoate/Formoterol Fumar 2 puff 06/12/20 18:30 06/17/20 05:34 Mometasone 200 Mcg/Formoterol 5 Mcg 120 Puff Inhaler INH 2 puff BID-RT ADA Administration Multivitamins 1 tab 06/12/20 09:00 06/17/20 07:50 Multivit, Therapeutic 1 Tab PO 1 tab DAILY ADA Administration Zinc Sulfate 220 mg 06/12/20 09:00 06/17/20 07:50 Zinc Sulfate 220 Mg Cap PO 220 mg DAILY ADA Administration - Exam Neck: negative: supple, symmetric, no JVD, no thyromegaly, no lymphadenopathy, no carotid bruit, JVD Heart: negative: RRR, no murmur, no gallops, no rubs, normal peripheral pulses, irregular, diminshed peripheral pulses, murmur present, II/IV, III/IV Respiratory: negative: CTAB, no wheezes, no rales, no ronchi, normal chest expansion, no tachypnea, normal percussion, rales, rhonchi, tachypneic, wheezes Gastrointestinal: negative: soft, non-tender, non-distended, normal bowel sounds, no palpable masses, no hepatomegaly, no splenomegaly, no bruit, no guarding, no rigidity, tender to palpation, distended, diminished bowl sounds, voluntary guarding Hosp A/P - Plan DVT proph w/lovenox, DVT proph w/SCDs Sepsis with acute hypoxic respiratory failure due to severe COVID-19 pneumoniasymptom onset 11 days prior to admission On remdesivir/dexamethasone Hypertension Hypothyroidism Abnormal LFTs Hypokalemia Elevated inflammatory markers Plan: Case discussed with pulmonary Dr. Murphy who recommended to continue current medications. Continue remdesivir and dexamethasone. Continue bronchodilators and inhaled steroids. Continue doxycycline. Recheck labs in a.m. Monitor inflammatory markers. 06/15 we will continue current management. Patient still becomes very hypoxic when she coughs and tries to have a conversation. She is currently on 4 L nasal cannula. 06/16 patient currently on 3 L nasal cannula we will continue to monitor. Possible discharge in the next 24 to 48 hours if she comes down to 2 L nasal cannula.
--- NOTE | 2020-06-17 18:06 | PDOC.HOSPP ---
- Subjective Encounter Date: 06/17/20 Encounter Time: 15:30 Subjective: Patient up in bed no complaints. - Objective Vital Signs & Weight: Vital Signs (12 hours) Temp Pulse Resp BP Pulse Ox 06/17/20 15:50 97.8 F 82 18 119/69 100 06/17/20 11:34 97.8 F 81 20 130/76 98 06/17/20 08:17 97.9 F 94 18 131/74 92 L 06/17/20 08:00 97.7 F 87 22 H 117/75 92 L Weight Weight 158 lb I&O: 06/16/20 06/17/20 06/18/20 06:59 06:59 06:59 Intake Total 612 2560 Balance 612 2560 Result Diagrams: 06/17/20 05:42 06/17/20 05:42 Hospitalist ROS - Review of Systems Cardiovascular: denies: chest pain, palpitations, orthopnea, paroxysmal noc. dyspnea, edema, light headedness, other Gastrointestinal: denies: nausea, vomiting, abdominal pain, diarrhea, constipation, melena, hematochezia, other Genitourinary: denies: dysuria, frequency, incontinence, hematuria, retention, other - Medication Medications: Active Medications Generic Name Dose Route Start Last Admin Trade Name Freq PRN Reason Stop Dose Admin Albuterol Sulfate 2 puff 06/11/20 22:30 06/17/20 17:49 Albuterol 200 Puff (6.7gm Inhaler) INH 2 puff [id number] ADA Administration Ascorbic Acid 1,000 mg 06/12/20 09:00 06/17/20 07:50 Ascorbic Acid 500 Mg Chewable Tablet PO 1,000 mg DAILY ADA Administration Benzonatate 100 mg 06/11/20 19:42 06/16/20 09:27 Benzonatate 100 Mg Cap PO 100 mg TIDPRN PRN Administration Cough Benzonatate 100 mg 06/11/20 20:50 06/17/20 07:59 Benzonatate 100 Mg Cap PO 100 mg Q6H PRN Administration Cough Cholecalciferol 1,000 units 06/12/20 21:00 06/16/20 20:53 Cholecalciferol 1,000 Units (25 Mcg) Tab PO 1,000 units HS ADA Administration Dexamethasone 6 mg 06/12/20 21:00 06/17/20 07:51 Dexamethasone 4 Mg/Ml Vial SLOW IVP 6 mg BID ADA Administration Doxycycline Hyclate 100 mg 06/12/20 21:00 06/17/20 07:59 Doxycycline 100 Mg Cap PO 100 mg BID ADA Administration Enoxaparin Sodium 40 mg 06/12/20 09:00 06/17/20 07:50 Enoxaparin Sodium 40 Mg/0.4 Ml Syringe SC 40 mg 0900 ADA Administration Famotidine 20 mg 06/11/20 21:00 06/17/20 07:50 Famotidine 20 Mg Tab PO 20 mg BID ADA Administration Guaifenesin 600 mg 06/11/20 21:00 06/17/20 07:50 Guaifenesin Er 600 Mg Tab PO 600 mg Q12HR AAD Administration Guaifenesin/Dextromethorphan 15 ml 06/11/20 19:42 06/14/20 23:10 Guaifenesin Dm 100-10/5 Ml Udcup PO 15 ml Q4H PRN Administration Cough Ibuprofen 400 mg 06/11/20 19:41 06/17/20 07:58 Ibuprofen 200 Mg Tab PO 400 mg Q8H PRN Administration Pain Levothyroxine Sodium 75 mcg 06/12/20 06:00 06/17/20 05:34 Levothyroxine Sodium 75 Mcg Tab PO 75 mcg 0600 ADA Administration Metoprolol Succinate 25 mg 06/12/20 09:00 06/17/20 07:50 Metoprolol Succinate Xl 25 Mg Tab PO 25 mg DAILY ADA Administration Mometasone Furoate/Formoterol Fumar 2 puff 06/12/20 18:30 06/17/20 17:50 Mometasone 200 Mcg/Formoterol 5 Mcg 120 Puff Inhaler INH 2 puff BID-RT ADA Administration Multivitamins 1 tab 06/12/20 09:00 06/17/20 07:50 Multivit, Therapeutic 1 Tab PO 1 tab DAILY ADA Administration Zinc Sulfate 220 mg 06/12/20 09:00 06/17/20 07:50 Zinc Sulfate 220 Mg Cap PO 220 mg DAILY ADA Administration - Exam Neck: negative: supple, symmetric, no JVD, no thyromegaly, no lymphadenopathy, no carotid bruit, JVD Heart: negative: RRR, no murmur, no gallops, no rubs, normal peripheral pulses, irregular, diminshed peripheral pulses, murmur present, II/IV, III/IV Respiratory: negative: CTAB, no wheezes, no rales, no ronchi, normal chest expansion, no tachypnea, normal percussion, rales, rhonchi, tachypneic, wheezes Gastrointestinal: negative: soft, non-tender, non-distended, normal bowel sounds, no palpable masses, no hepatomegaly, no splenomegaly, no bruit, no guarding, no rigidity, tender to palpation, distended, diminished bowl sounds, voluntary guarding Hosp A/P - Plan DVT proph w/lovenox, DVT proph w/SCDs Sepsis with acute hypoxic respiratory failure due to severe COVID-19 pneumoniasymptom onset 11 days prior to admission On remdesivir/dexamethasone Hypertension Hypothyroidism Abnormal LFTs Hypokalemia Elevated inflammatory markers Plan: Case discussed with pulmonary Dr. Murphy who recommended to continue current medications. Continue remdesivir and dexamethasone. Continue bronchodilators and inhaled steroids. Continue doxycycline. Recheck labs in a.m. Monitor inflammatory markers. 06/15 we will continue current management. Patient still becomes very hypoxic when she coughs and tries to have a conversation. She is currently on 4 L nasal cannula. 06/16 patient currently on 3 L nasal cannula we will continue to monitor. Possible discharge in the next 24 to 48 hours if she comes down to 2 L nasal cannula. 06/17 patient currently on 2 L nasal cannula. She does drop her oxygen sa turations while talking. Her inflammatory markers have improved. Possible discharge home in a.m.
[2020-06-17] MEDS: Cholecalciferol 1,000 UNITS (25 MCG) TAB PO SCH (21:10)
[2020-06-18] MEDS: Albuterol 200 PUFF (6.7GM INHALER) INH SCH ×4 (02:30→14:30)
[2020-06-18] MEDS: Mometasone 200 MCG/Formoterol 5 MCG 120 PUFF INHALER INH SCH (05:33)
[2020-06-18] MEDS: Levothyroxine Sodium 75 MCG TAB PO SCH (05:34)
[2020-06-18] MEDS: guaiFENesin ER 600 MG TAB PO SCH (08:09)
[2020-06-18] MEDS: Ascorbic Acid 500 mg Chewable Tablet PO SCH (08:09)
[2020-06-18] MEDS: Multivit, Therapeutic 1 TAB PO SCH (08:09)
[2020-06-18] MEDS: Famotidine 20 MG TAB PO SCH (08:10)
[2020-06-18] MEDS: Dexamethasone 4 mg/ml Vial SLOW IVP SCH (08:10)
[2020-06-18] MEDS: Doxycycline 100 MG CAP PO SCH (08:10)
[2020-06-18] MEDS: Enoxaparin Sodium 40 MG/0.4 ML SYRINGE SC SCH (08:10)
[2020-06-18] MEDS: Zinc Sulfate 220 MG CAP PO SCH (08:10)
[2020-06-18] MEDS: Benzonatate 100 MG CAP PO PRN (08:13)
[2020-06-18] MEDS: Ibuprofen 200 MG TAB PO PRN (08:13)
--- NOTE | 2020-06-18 13:00 | PDOC.DS.DS ---
Provider - Provider Date of Admission: 06/11/20 13:51 Date of Discharge: 06/18/20 Admitting Provider: Ela Nogueira MD Consultations: Infectious Disease Primary Care Physician: Katerine Silva MD Course - Hospital Course Hospital Course: Patient is a very pleasant 64-year-old female who initially presented to the hospital with complaints of shortness of breath. Patient is a nurse practitioner works with Covid patients. Her symptoms started 11 days prior to coming to the hospital. She was given remdesivir and Decadron. She continued to improve through the hospital stay. CTA did not indicate any pulmonary embolism. She will be discharged home with home oxygen. She will follow-up with her primary. Sepsis with acute hypoxic respiratory failure due to severe COVID-19 pneumoniasymptom onset 11 days prior to admission On remdesivir/dexamethasone Hypertension Hypothyroidism Abnormal LFTs Hypokalemia Elevated inflammatory markers Resuscitation Status: 06/11/20 14:09 Resuscitation Status Routine Resuscitation Status: FULL: Full Resuscitation - Labs Lab Results: 06/17/20 05:42 06/17/20 05:42 Abnormal Lab Results - Last 48 hrs 06/17/20 05:42: BUN 23 H, C-Reactive Protein 0.59 H, Albumin 3.2 L, Albumin/Globulin Ratio 1.1 L 06/17/20 05:42: Plt Count 475 H, MPV 6.8 L, Neutrophils % 82.0 H, Lymphocytes % 8.7 L, Neutrophils # 8.1 H, Lymphocytes # 0.9 L, Monocytes # 0.8 H 06/17/20 05:42: D-Dimer 0.78 H Microbiology - Entire Visit 06/11/20 11:05 Venous blood - Left Arm Blood Culture - Final NO GROWTH IN 5 DAYS 06/11/20 11:02 Venous blood - Right Arm Blood Culture - Final NO GROWTH IN 5 DAYS 06/11/20 11:21 Urine clean catch Urine Culture - Final NO GROWTH AT 48 HOURS - Physical Exam Vitals: Vital Signs (12 hours) Temp Pulse Resp BP Pulse Ox 06/18/20 11:31 97.5 F L 83 20 115/71 99 06/18/20 08:00 97.5 F L 85 18 116/74 98 06/18/20 05:00 97.4 F L 84 18 118/75 95 06/18/20 03:50 72 18 99 Weight Weight 158 lb Physical Exam: The patient was seen and examined on the day of discharge. Plan - Discharge Medications Prescriptions: Aspirin 325 mg PO DAILY #14 tab Dexamethasone [Decadron] 6 mg PO DAILY #4 tablet Mometasone/Formoterol 200/5 [Dulera 200 Mcg/5 Mcg Inhaler] 2 puff INH BID-RT #1 inh Albuterol Sulfate [Proventil Hfa] 2 puff INH Q4H PRN #1 aer PRN Reason: Sob &/Or Wheezing Benzonatate [Tessalon] 100 mg PO Q6H PRN #30 cap PRN Reason: Cough Doxycycline [Vibramycin] 100 mg PO BID #6 cap Ascorbic Acid [Vitamin C] 1,000 mg PO DAILY #30 tab Cholecalciferol [Vitamin D3] 1,000 units PO HS #30 tab Home Medications: Medication Instructions Recorded Confirmed Type Levothyroxine Sodium [Synthroid] 75 mcg PO DAILY 06/11/20 06/11/20 History Metoprolol Succinate 25 mg PO DAILY 06/11/20 06/11/20 History Albuterol Sulfate [Proventil Hfa] 2 puff INH Q4H PRN #1 aer 06/18/20 Rx Ascorbic Acid [Vitamin C] 1,000 mg PO DAILY #30 tab 06/18/20 Rx Aspirin 325 mg PO DAILY #14 tab 06/18/20 Rx Benzonatate [Tessalon] 100 mg PO Q6H PRN #30 cap 06/18/20 Rx Cholecalciferol [Vitamin D3] 1,000 units PO HS #30 tab 06/18/20 Rx Dexamethasone [Decadron] 6 mg PO DAILY #4 tablet 06/18/20 Rx Doxycycline [Vibramycin] 100 mg PO BID #6 cap 06/18/20 Rx Mometasone/Formoterol 200/5 2 puff INH BID-RT #1 inh 06/18/20 Rx [Dulera 200 Mcg/5 Mcg Inhaler] Allergies: sulfamethoxazole [From Bactrim] Allergy (Verified 06/11/20 15:59) trimethoprim [From Bactrim] Allergy (Verified 06/11/20 15:59) - Discharge Instructions Discharge Instructions:: Please take the steroid with food. Activity:: Activity as Tolerated Nourishment:: Heart Healthy Diet - Follow up Plan Referrals: Katerine Silva MD [Primary Care Provider] - Guille Todd MD [Active] - Disposition: HOME Quality - Care Measures CORE MEASURES:: N/A
[2020-06-18 15:59] VITALS: BP 128/78; TEMP 97.9
== END 2020-06-18 15:23 | disposition home or self-care (01) | DRG 871 ==
LOC: ERS 10:08 → T4-A 13:51
PROVIDERS: ADMIT Internal Medicine; ATTEND Internal Medicine
PROC: 8E0ZXY6 Isolation (ICD-10-PCS; 2020-06-11)
PROC: XW13325 Transfusion of Convalescent Plasma (Nonautologous) into Peripheral Vein, Percutaneous Approach, New Technology Group 5 (ICD-10-PCS; principal; 2020-06-12)
PROC: XW033E5 Introduction of Remdesivir Anti-infective into Peripheral Vein, Percutaneous Approach, New Technology Group 5 (ICD-10-PCS; 2020-06-12)
DX: A41.89 Other specified sepsis (principal); U07.1 COVID-19; J12.89 Other viral pneumonia; J96.01 Acute respiratory failure with hypoxia; I10 Essential (primary) hypertension; E03.9 Hypothyroidism, unspecified; R94.5 Abnormal results of liver function studies; E87.6 Hypokalemia; Z88.1 Allergy status to other antibiotic agents; Z90.710 Acquired absence of both cervix and uterus; Z79.899 Other long term (current) drug therapy; Z79.890 Hormone replacement therapy
CPT/HCPCS: 36415; 36430; 71045; 71275; 80053; 81003; 81015; 82728; 83605; 83615; 83690; 83735; 83880; 84484; 85025; 85379; 86140; 86850; 86900; 86901; 87040; 87086; 93005; 96365; J0456; J0696; J1100; J1650; J7050; J8540; P9017; Q9967; U0002

== ENCOUNTER 2020-12-26 07:35 | Outpatient (CLI) | payer OTHER | END 2020-12-26 07:36 | disposition home or self-care (01) | LOC: BICMAMMO 07:35 | PROVIDERS: ATTEND Family Medicine | DX: Z12.31 Encounter for screening mammogram for malignant neoplasm of breast (principal) | CPT/HCPCS: 77063; 77067 ==